=== PATIENT | male | born 1955 | race Caucasian/White ===

== ENCOUNTER → 2017-05-27 | Outpatient (CLI) | payer OTHER ==
[2017-05-27 17:48] LABS: BASO % 0.6 %; BASO ABS # 0.04 K/uL (0-0.2); COMPLETE YES; EOS % 3.3 %; HEMATOCRIT 45.4 % (42-52); IG% 0.1 %; LYMPH % 21.5 %; LYMPH ABS # 1.48 K/uL (1.2-3.4); MEAN CELL VOLUME 87.3 fL (80-100); MEAN CORPUSCULAR HGB CONC 34.4 g/dl (32-36); MEAN PLATELET VOLUME 9.5 fL (7.4-10.4); MONO % 5.2 %; NEUT % 69.3 %; PLATELET COUNT 238 K/uL (130-400); WHITE BLOOD COUNT 6.87 K/uL (4.8-10.8)
[2017-05-27 18:50] LABS: ALB/GLOB RATIO 1.2 (0.9-2); ALKALINE PHOSPHATASE 81 U/L (45-117); ALT/SGPT 33 U/L (12-78); AST/SGOT 15 U/L (15-37); BLOOD UREA NITROGEN 11 mg/dl (7-18); CALCIUM 8.7 mg/dl (8.5-10.1); CARBON DIOXIDE 26 mmol/L (21-32); CHLORIDE 104 mmol/L (98-107); CHOLESTEROL 195 mg/dl (0-200); CHOLESTEROL/HDL RATIO 5.4; CREATININE 1.14 mg/dl (0.60-1.40); GLUCOSE 102 mg/dl (70-99); HDL CHOLESTEROL 36 mg/dl; POTASSIUM 4.2 mmol/L (3.5-5.1); SODIUM 136 mmol/L (136-145)
[2017-05-27 19:03] LABS: LDL CHOLESTEROL CALCULATED 138 mg/dl; TRIGLYCERIDES 107 mg/dl (0-150); VERY LOW DENSITY LIPOPROT CALC 21 mg/dl
== END | disposition home or self-care (01) ==
LOC: C.LABPVFM 13:16
PROVIDERS: ATTEND Family Medicine
DX: R03.0 Elevated blood-pressure reading, without diagnosis of hypertension (principal)

== ENCOUNTER 2019-02-18 06:36 | Inpatient (IN) ==
--- NOTE | 2019-02-11 08:41 | PAT Medication Instructions ---
Medication Instructions Date of Service February 11, 2019 Home Medications hydrochlorothiazide 25 mg tablet 25 mg PO QAM atorvastatin 40 mg PO QPM DO NOT take the morning of surgery hydrochlorothiazide 25 mg tablet 25 mg PO QAM Take evening before surgery atorvastatin 40 mg PO QPM Other Notes If you have any questions please call us at [phone] or [phone] or [phone] or [phone]
--- NOTE | 2019-02-11 10:50 | Anesthesiology Consultation ---
Date of Service February 11, 2019 Assessment & Plan (1) Encounter for pre-operative examination: - PCP: 02/11/19: "pt is medically optimized for the procedure ("cleared")." Chart Review Chart Review: Acceptable Risk for Surgery (pending preop EKG) and Patient seen in Pre Admission Testing Teaching & Discussion Pre-Anesthesia Teaching/Discussion Notes: Instructed NPO after midnight before surgery,except medications with 15 cc of water. Medication instructions provided according to the PAT guidelines. History Surgery Operation Date: 02/18/19 08:15 Proposed Procedures p Robotic Laparoscopic Prostatectomy, Possible Lymph Node Dissection, - Rasheed Franco MD s Suprapubic Tube Placement - Rasheed Franco MD Height/Weight Height: 5 ft 10 in Weight: 72.6 kg Allergies Allergy/AdvReac Type Severity Reaction Status Date / Time No Known Allergies Allergy Unverified 02/11/19 13:24 Medications Home Medications Medication Instructions Recorded Confirmed Last Taken hydrochlorothiazide 25 mg tablet 25 mg PO QAM #90 tab 02/03/19 02/11/19 Unknown atorvastatin 40 mg PO QPM 02/04/19 02/11/19 Unknown Past Medical History Medical History HTN (hypertension) Hyperlipidemia Prostate cancer Exercise / Class Metabolic Activity II 4-5 Yardwork/Stairs/Walk up hill Past Family History Family History Brother No problems noted. Mother Family history of diabetes mellitus Father Family history of diabetes mellitus Family/Other Family history of diabetes mellitus Past Surgical History Surgical History H/O prostate biopsy History of tooth extraction Past Anesthesia History No Hx of Anesthesia Complications and No Family Hx of Anesthesia Complications History of PONV No Hx of PONV and No Hx of Motion Sickness Social History tobacco type: cigars Do You Dip or Chew Tobacco: Yes (1 can/3-5 days- advised NPO AM DOS) Smoking End Date: Quit cigarettes 15 years ago; rare cigar use Hx Alcohol Use: Yes Alcohol type: beer and hard liquor alcohol intake frequency: a few times a month Hx Substance Use: No substance use type: does not use Review of Systems Patient denies chest pain, shortness of breath, dyspnea on exertion, reflux, cough, wheezing, palpitations. Physical Exam Vital Signs VITALS BP 154/97 (elevated in medical settings per patient, monitors closely at home 120-130's/70-80's) P 62 TEMP 97.9 SP02 95%RA RESP 20 PHYSICAL Full neck and c-spine range of motion. Full TMJ range of motion. TMD 3.5 finger breaths Mallampati Score 2 Dentition: missing molars Lungs: clear throughout to auscultation Cardiac: regular rate and rhythm, no murmurs noted Spine: normal Carotid arteries: negative bruit Extremities: no edema Trimmed spears Testing Laboratory Results 02/11/19 11:30 02/11/19 11:50 Urine Color Yellow 02/11/19 Unknown Urine Appearance Clear (Clear) 02/11/19 Unknown Urine pH 7.0 (4.5-7.5) 02/11/19 Unknown Ur Specific Mc[place] 1.011 (1.000-1.030) 02/11/19 Unknown Urine Protein Negative (Negative) 02/11/19 Unknown Urine Glucose (UA) Negative (Negative) 02/11/19 Unknown Urine Ketones Negative (Negative) 02/11/19 Unknown Urine Nitrite Negative (Negative) 02/11/19 Unknown Ur Leukocyte Esterase Negative (Negative) 02/11/19 Unknown Blood Type A Negative 02/11/19 11:30 Antibody Screen NEGATIVE 02/11/19 11:30 Chest X-Ray Date: 02/11/19 Findings: + NAD
[2019-02-11 12:12] LABS: Basophils # (auto) 0.03 K/uL (0-0.2); Basophils % (auto) 0.5 %; Eosinophils # (auto) 0.25 K/uL (0-0.5); Eosinophils % (auto) 3.8 %; Hematocrit (blood only) 48.5 % (42-52); Hemoglobin 17.6 g/dL (14.0-18.0); Immature Granulocytes # (auto) 0.02 K/uL (0.00-0.02); Immature Granulocytes % (auto) 0.3 %; Lymphocytes # (auto) 1.84 K/uL (1.2-3.4); Mean Corpuscular Hemoglobin 30.9 pg (25-34); Mean Corpuscular Hgb Conc 36.3 g/dL (32-36); Mean Corpuscular Volume 85.2 fL (80-100); Mean Platelet Volume 10.2 fL (7.4-10.4); Monocytes # (auto) 0.55 K/uL (0.11-0.59); Monocytes % (auto) 8.4 %; Neutrophils # (auto) 3.88 K/uL (1.4-6.5); Platelet Count 198 K/uL (130-400); RDW Coefficient of Variation 13.7 % (11.5-14.5); RDW Standard Deviation 42.4 fL (36.4-46.3); Red Blood Count 5.69 M/uL (4.7-6.1); White Blood Count 6.57 K/uL (4.8-10.8)
--- NOTE | 2019-02-11 12:20 | XRay Report ---
XR chest Pre-admission PA/Lat CLINICAL HISTORY: pat preoperative evaluation COMPARISON STUDY: No previous studies for comparison. FINDINGS: The bones soft tissues and hemidiaphragms are normal. The cardiomediastinal silhouette is n ormal. The lungs are clear. The pulmonary vasculature is normal. IMPRESSION: Negative chest. The above report was generated using voice recognition software. It may contain grammatical, syntax or spelling errors. Electronically signed by: Steven Dowling M.D. 02/11/2019 12:19 PM
[2019-02-11 12:32] LABS: Appearance Urine Clear (Clear); Bilirubin Urine Negative (Negative); Blood Urine Negative (Negative); Color Urine Yellow; Glucose Urine UA Negative (Negative); Ketones Urine Negative (Negative); Leukocyte Esterase Urine Negative (Negative); Nitrite Urine Negative (Negative); Protein Urine Negative (Negative); Specific Gravity Urine 1.011 (1.000-1.030); Urobilinogen Urine Negative (Negative)
[2019-02-11 13:52] LABS: BUN Creatinine Ratio 19.3 (10-20); Calcium 9.5 mg/dl (8.5-10.1); Creatinine Clr Calc Pharmacy 75.1 ml/min; Est GFR (African American) 89.6; Est GFR (Non-African American) 77.3; Potassium 3.5 mmol/L (3.5-5.1)
[~2019-02-18 06:36] MED LIST: ACETAMINOPHEN 1,000 MG/100 ML VIAL IV SCH; CEFAZOLIN 2000MG 2,000 MG/15 ML SYR IV SCH; HEPARIN SOD 5,000 UNIT/0.5 ML VIAL SQ SCH; LR 15ML/HR IV SCH
[2019-02-18] MEDS ORDERED: MIDAZOLAM HCL 1 MG/ML 2ML VIAL ONE (08:01)
[2019-02-18] MEDS ORDERED: fentaNYL citrate 100 MCG/2 ML VIAL ONE (08:02)
--- NOTE | 2019-02-18 08:14 | History & Physical Bridge Note ---
Date of Service February 18, 2019 History & Physical Bridge Note I have examined the patient, reviewed the History & Physical and in the interval since the performance of the History & Physical I have noted the following changes of clinical significance: no changes noted
[2019-02-18] MEDS ORDERED: BUPIVACAINE 0.5 % 5 MG/1 ML MPF 30ML VIAL ONE (08:24)
[2019-02-18] MEDS ORDERED: ATROPINE SULFATE 0.1 MG/ML 10ML SYR IV PRN (08:51)
[2019-02-18] MEDS ORDERED: ONDANSETRON INJ 2 MG/ML 2 ML VIAL IV PRN ×2 (08:51→12:37)
[2019-02-18] MEDS ORDERED: HYDROmorphone INJ 1 MG/ML SYRINGE IV PRN (08:51)
[2019-02-18] MEDS ORDERED: fentaNYL citrate 100 MCG/2 ML VIAL IV PRN (08:51)
[2019-02-18] MEDS ORDERED: ePHEDrine sulfate 50 MG/ML AMP IV PRN (08:51)
[2019-02-18] MEDS ORDERED: HYDROmorphone INJ 2 MG/ML SYR/VIAL ONE (08:58)
[2019-02-18] MEDS ORDERED: DEXAMETHASONE SOD INJ 4 MG/ML VIAL ONE (10:45)
[2019-02-18] MEDS ORDERED: LIDOCAINE 2% 20 MG/ML 5 ML SYR IV ONE (10:45)
[2019-02-18] MEDS ORDERED: PROPOFOL IV EMULSION 10 MG/ML 20 ML VIAL IV ONE (10:45)
[2019-02-18] MEDS ORDERED: ROCURONIUM BROMIDE 10 MG/ML 5 ML VIAL ONE (10:45)
[2019-02-18] MEDS ORDERED: ATROPINE SO4 1 MG/ML 1ML VIAL ONE (10:46)
[2019-02-18] MEDS ORDERED: NEOSTIGMINE METHYLSULFATE 5 MG/5 ML SYR ONE (10:46)
[2019-02-18] MEDS ORDERED: GLYCOPYRROLATE 0.2 MG/ML VIAL ONE ×2 (10:46)
[2019-02-18] MEDS ORDERED: ONDANSETRON INJ 2 MG/ML 2 ML VIAL ONE ×2 (10:46→10:58)
--- NOTE | 2019-02-18 11:14 | Operative Report ---
Post Operative Report Pre & Post Diagnosis Operation Date: 02/18/19 08:15 Pre-Op Diagnosis: Prostatic Cancer Post-Op Diagnosis: Prostatic Cancer Procedure Operation Date: 02/18/19 08:15 Actual Procedures p Robotic Laparoscopic Prostatectomy - Rasheed Franco MD s Suprapubic Tube Placement - Rasheed Franco MD Surgeon Rasheed Franco MD Central Office Worker Mike MURRAY Estimated Blood Loss 50 Findings Consistent with Post-Op Diagnosis Specimens Periprostatic fat, prostate + SVs Description of Procedure RALRP, SPT placement I attest to the content of the Intraoperative Record and any orders documented therein. Any exceptions are noted below.
[2019-02-18 11:51] LABS: Basophils # (auto) 0.02 K/uL (0-0.2); Basophils % (auto) 0.1 %; Eosinophils # (auto) 0.14 K/uL (0-0.5); Hematocrit (blood only) 47.8 % (42-52); Immature Granulocytes # (auto) 0.03 K/uL (0.00-0.02); Immature Granulocytes % (auto) 0.2 %; Lymphocytes # (auto) 1.48 K/uL (1.2-3.4); Lymphocytes % (auto) 10.9 %; Mean Corpuscular Volume 87.1 fL (80-100); Mean Platelet Volume 10.1 fL (7.4-10.4); Monocytes # (auto) 0.36 K/uL (0.11-0.59); Monocytes % (auto) 2.6 %; Neutrophils % (auto) 85.2 %; Platelet Count 177 K/uL (130-400); RDW Coefficient of Variation 13.3 % (11.5-14.5); RDW Standard Deviation 42.4 fL (36.4-46.3); Red Blood Count 5.49 M/uL (4.7-6.1); White Blood Count 13.63 K/uL (4.8-10.8)
[2019-02-18 12:10] LABS: Mean Corpuscular Hgb Conc 35.6 g/dL (32-36)
--- NOTE | 2019-02-18 12:22 | Anesthesiology Progress Note ---
Date of Service February 18, 2019 Anesthesia Post Procedure Vital Signs Vital Signs: Temp Pulse Pulse Resp BP Pulse Ox 02/18/19 12:05 36.0 C L 51 L 13 153/93 H 97 02/18/19 11:55 48 L 12 138/82 97 02/18/19 11:45 59 L 13 132/81 99 02/18/19 11:36 59 L 13 132/81 99 02/18/19 11:26 36.3 C L 52 L 24 147/96 H 99 02/18/19 07:36 36.6 C 69 18 160/101 H 99 Pain Intensity Abdomen: Pain Intensity: 0 Transfer of Care Handoff Completed per policy Notes Mental Status: alert / awake / arousable and participated in evaluation Patient Amnestic to Procedure: Yes Nausea / Vomiting: adequately controlled Pain: adequately controlled Airway Patency, RR, SpO2: stable & adequate BP & HR: stable & adequate Hydration State: stable & adequate Anesthetic Complications: no major complications apparent and Pt Satisfied with anesthetic care
--- NOTE | 2019-02-18 12:23 | Operative Report ---
DATE OF OPERATION: 02/18/2019 PREOPERATIVE DIAGNOSIS: Clinical T1c, Alderpoint 3+4 adenocarcinoma of the prostate with a preoperative PSA of 4.4. POSTOPERATIVE DIAGNOSIS: Clinical T1c, Alderpoint 3+4 adenocarcinoma of the prostate with a preoperative PSA of 4.4. PROCEDURE: Robot-assisted laparoscopic radical retropubic prostatectomy with bilateral nerve sparing, suprapubic tube placement. SURGEON: Rasheed Franco MD DIRECTOR OF CURRICULUM AND INSTRUCTION: TREVOR Hinojosa. Assistants present throughout the case for port placement, tissue retraction, camera manipulation during laparoscopic portion of the case, suction, needle passage, assistance with closure and general patient safety. INTRAVENOUS FLUIDS: 1 liter. ESTIMATED BLOOD LOSS: 50 mL. ANESTHESIA: General anesthesia with endotracheal intubation plus local at port sites. COMPLICATIONS: None. SPECIMENS SENT TO PATHOLOGY: Periprostatic fat, prostate plus seminal vesicles. DRAINS LEFT IN PLACE: Include an 18-[place] silicone Patel catheter per urethra with 10 mL of sterile water in the balloon, 16-[place] suprapubic tube with 10 mL of sterile water in the balloon and #10 JNOH drain in left lower quadrant. FINDINGS: Watertight anastomosis, excellent plane of dissection without discernible intraabdominal anatomic abnormalities. BRIEF HISTORY: Mr. Deal is a pleasant 63-year-old male who I have seen for an elevated age adjusted PSA value who underwent a prostate biopsy for evaluation. This demonstrated majority Alderpoint 3 disease in 5 cores with a 5% component of Reed 4 and a single core. After discussion of risks and benefits of various forms of intervention, he has decided upon robotic prostatectomy to manage his disease. Seeing his low PSA and a low Reed 4 volume, nerve sparing dissection is planned and the lymph node dissection is not planned. Please see H and P for further details. Intravenous Ancef was provided for antibiotic coverage and SCDs used for DVT prophylaxis. Intravenous Tylenol was also provided for additional perioperative analgesia. DESCRIPTION OF PROCEDURE: The patient was properly identified and brought into the operative suite after identification of appropriate consent on the chart. General anesthesia with endotracheal intubation was initiated. The patient was prepped and draped in standard fashion for this procedure. interactive multimedia designer-out procedure was followed. Supraumbilical incision was made in a lateral direction and abdomen was entered under direct visualization using a 0 degree laparoscope and visual obturator. Abdomen was insufflated to 15 mmHg and a transient vagal response, required desufflation of the abdomen shortly. Abdomen was then reinsufflated to 12 mmHg with resolution of the prior difficulties and it was kept at this pressure for the remainder of the case. Ports were placed for 4th arm robotic template including 2 left-sided 7 mm ports, 1 right-sided 7 mm robotic port and a 12 and 5 mm facilities assistant port. The patient was placed in Trendelenburg and robot was brought in and docked. A 0 degree lens was used to drop the bladder down to the level of the pubic bone. A paucity of intra-abdominal fat was appreciated. Prostate was defatted and this tissue was sent for pathologic analysis as periprostatic fat. Endopelvic fascia was sharply entered on both sides and dissection was carried down to the level of the apex of the prostate. Dorsal venous complex was skeletonized and controlled using 0 Vicryl suture on a CT1 needle in a [id number] fashion. Well-defined neurovascular bundles were appreciated on both sides of the prostate and nerve sparing dissection was initiated at this time. A 30-degree down lens was then used to place the bladder on traction and the fourth arm using a ProGrasp. Bladder neck was skeletonized down to the level of the Patel catheter with a well-defined detrusor musculature. This was divided at its insertion into the prostate and Patel was then used for anterior traction on the prostate. Posterior bladder neck was divided and dropped in the midline until the vas deferens were encountered. These were circumscribed and divided and seminal vesicles were dissected free from the confines of the prostatic bed without difficulties or violation. Excellent anatomy was appreciated throughout the case. Rectum was dropped in the midline down to the level of the apex of the prostate. Prostatic pedicles were skeletonized and a single lateral Weck clip was used to control the inferior vesicle attachments of the prostate and the prostatic pedicles. A complete nerve sparing dissection was carried out on both sides up to the level of the apex of the prostate. Attention was then turned to the dorsal venous bundle which was divided using hot scissors. Urethra was skeletonized and divided at its insertion into the prostate with excellent urethral length. Remaining rectourethralis fibers were divided and prostate was delivered from the pelvis where it was placed. I went into the EndoCatch bag within the abdominal cavity. This was left for retrieval at the end of the case. Attention was turned to the pelvis where excellent hemostasis was appreciated. No tissue sealant was felt to be necessary. Rectum was insufflated under saline irrigation and noted to be free of any injury. Double armed Vicryl suture was used to anastomose a continent bladder neck to an excellent urethral stump. A Patel catheter easily entered the bladder over the course of this closure and after it was complete, it was tested with greater than 120 mL of sterile irrigant and noted to be watertight. A balloon to the Patel catheter was deflated and this was brought down to the urethra channel. A suprapubic tube was made was brought in via the small separate suprapubic incision and directly visualized entering the bladder using the robot. A 10 mL of sterile water were placed within a 16-[place] catheter via the trocar. The urethral catheter was returned to the bladder and balloon was reinflated. Catheters were irrigated with isovolumic return from one to the other. No evidence of posterior bladder injury was appreciated on direct visualization. Fourth arm was removed and #10 JONH drain was brought in via the fourth arm port. Robotic instruments were removed and robot was dedocked. Strings to the EndoCatch bag was brought out through the supraumbilical incision prior to port removal. This was then enlarged sufficiently to allow for easy removal of the specimen bag. Supraumbilical incision was closed using a 0 Vicryl suture on a UR-5 needle. A 2-0 silk was used to secure the JONH drain and suprapubic tube in place. Monocryl was used at the level of the skin followed by Dermabond for skin closure. Excess carbon dioxide gas had been removed from the abdomen prior to completion of closure. Anesthesia was reversed. The patient was transferred to recovery room in stable condition. FOLLOWUP CARE: The patient will be admitted to the floor for standard postoperative management. I attest to the content of the Intraoperative Record and any orders documented therein. Any exceptions are noted below. ACD
[2019-02-18 12:25] LABS: BUN Creatinine Ratio 17.8 (10-20); Calcium 8.6 mg/dl (8.5-10.1); Creatinine Clr Calc Pharmacy 56.2 ml/min; Est GFR (African American) 64.4; Est GFR (Non-African American) 55.6
[2019-02-18] MEDS ORDERED: MoRPHine SULFATE 4 MG/ML 1 ML CARP\\VIAL IV PRN (12:37)
[2019-02-18] MEDS ORDERED: ACETAMINOPHEN 1,000 MG/100 ML VIAL IV PRN (12:37)
[2019-02-18] MEDS ORDERED: OXYCODONE HCL IR 5 MG TAB (IMMEDIATE RELEASE) PO PRN ×2 (12:37)
[2019-02-18] MEDS: LACTATED RINGER'S 1,000 ML IV SCH ×2 (14:02→22:20)
[2019-02-18] MEDS: CEFAZOLIN 2000MG 2,000 MG/15 ML SYR IV SCH ×2 (15:53→23:34)
[2019-02-18] MEDS: HEPARIN SOD 5,000 UNIT/0.5 ML VIAL SQ SCH (20:28)
[2019-02-18] MEDS: DOCUSATE SODIUM 100 MG CAP PO SCH (20:28)
[2019-02-18] MEDS: FAMOTIDINE 20 MG in SYRINGE 3 ML IV SCH (20:28)
[2019-02-18] MEDS ORDERED: ATORVASTATIN 40 MG TAB PO SCH (21:00)
--- NOTE | 2019-02-19 07:31 | Urology Progress Note ---
Date of Service February 19, 2019 Assessment & Plan (1) Prostate cancer: A/P 63 yo male POD#1 s/p RALRP. Doing well. Wishes to keep SPT - will remove urethral yu, leave SPT in place for postop drainage. Advance diet and activity, DC IVF. Anticipate DC JONH and DC home later today. DC instructions and limitations reviewed with patient. Subjective 63 yo male POD#1 s/p RALRP, SPT. Doing well, anxious to have diet and go home. Pain well controlled, OOB last night. AM labs pending, PM postop labs wnl. No c/o, in good spirits. Review of Systems Constitutional: no fever and no chills Eyes: no diplopia Ear, Nose, Mouth, Throat: no ear trauma Respiratory: no hemoptysis Cardiovascular: no chest pain Gastrointestinal: + abdominal pain Integumentary: no acne and no boil Neurologic: no paralysis Psychiatric: no hopelessness Allergy / Immunological: no tongue swelling Physical Exam Constitutional: well developed and well nourished; no acute distress Eyes: eyes not dysmorphic ENMT: Ears: no external ear abnormality Neck: trachea midline; no anterior neck swelling Respiratory: no respiratory distress and does not use accessory muscles Cardiovascular: Vessels: radial pulses present Gastrointestinal (Abdomen): Inspection/Auscultation: abdomen not distended Percussion/Palpation: abdomen soft; abdomen nontender inc and drain sites, SPT site c/d/i with dressing. Musculoskeletal: Head/Neck/Chest: normocephalic and neck supple Skin: normal turgor Neurologic: awake; not obtunded Psychiatric: Orientation: oriented x 3 Lymphatic: no lymphadenopathy Results & Data Vital Signs (Past 12 Hours) Vital Signs Temp Pulse Resp BP BP Pulse Ox 02/19/19 03:15 36.9 C 61 14 128/58 L 96 02/18/19 22:58 37.0 C 64 14 135/75 98 02/18/19 20:36 168/87 H 02/18/19 19:44 36.9 C 70 18 193/76 H 97 Laboratory Results Laboratory Results - last 48 hr 02/18/19 02/18/19 11:29 11:29 WBC 13.63 H RBC 5.49 Hgb 17.0 Hct 47.8 MCV 87.1 MCH 31.0 MCHC 35.6 RDW Std Deviation 42.4 RDW Coeff of Emeterio 13.3 Plt Count 177 MPV 10.1 Immature Gran % (Auto) 0.2 Neut % (Auto) 85.2 Lymph % (Auto) 10.9 [place] % (Auto) 2.6 Eos % (Auto) 1.0 Baso % (Auto) 0.1 Immature Gran # (Auto) 0.03 H Neut # (Auto) 11.60 H Lymph # (Auto) 1.48 [place] # (Auto) 0.36 Eos # (Auto) 0.14 Baso # (Auto) 0.02 Sodium 139 Potassium 4.0 Chloride 102 Carbon Dioxide 33 H Anion Gap 4.0 BUN 24 H Creatinine 1.34 Est Cr Clr Drug Dosing 56.2 Est GFR ( Amer) 64.4 Est GFR (Non-Af Amer) 55.6 BUN/Creatinine Ratio 17.8 Glucose 140 H Calcium 8.6 Specimen Hemolysis PG Care Time/CCT Total # of Minutes Spent Total Time Spent with Patient: Total time spent is greater than 50% in coordination of care (as documented) at patient's floor/unit and/or counseling patient:
[2019-02-19] MEDS: DOCUSATE SODIUM 100 MG CAP PO SCH (08:07)
[2019-02-19] MEDS: HEPARIN SOD 5,000 UNIT/0.5 ML VIAL SQ SCH (08:07)
[2019-02-19 08:14] LABS: Basophils # (auto) 0.01 K/uL (0-0.2); Basophils % (auto) 0.1 %; Eosinophils # (auto) 0.06 K/uL (0-0.5); Eosinophils % (auto) 0.5 %; Hematocrit (blood only) 42.4 % (42-52); Hemoglobin 14.7 g/dL (14.0-18.0); Immature Granulocytes # (auto) 0.02 K/uL (0.00-0.02); Immature Granulocytes % (auto) 0.2 %; Lymphocytes # (auto) 1.85 K/uL (1.2-3.4); Mean Corpuscular Hemoglobin 29.9 pg (25-34); Mean Corpuscular Hgb Conc 34.7 g/dL (32-36); Mean Corpuscular Volume 86.2 fL (80-100); Mean Platelet Volume 10.1 fL (7.4-10.4); Monocytes # (auto) 1.19 K/uL (0.11-0.59); Monocytes % (auto) 10.3 %; Neutrophils # (auto) 8.43 K/uL (1.4-6.5); Neutrophils % (auto) 72.9 %; Platelet Count 175 K/uL (130-400); RDW Coefficient of Variation 13.4 % (11.5-14.5); RDW Standard Deviation 42.4 fL (36.4-46.3); Red Blood Count 4.92 M/uL (4.7-6.1); White Blood Count 11.56 K/uL (4.8-10.8)
[2019-02-19] MEDS: CEFAZOLIN 2000MG 2,000 MG/15 ML SYR IV SCH (08:15)
[2019-02-19] MEDS: FAMOTIDINE 20 MG in SYRINGE 3 ML IV SCH (08:16)
--- NOTE | 2019-02-19 08:18 | Anesthesiology Progress Note ---
Date of Service February 19, 2019 Anesthesia Post Procedure Vital Signs Vital Signs: Temp Pulse Pulse Resp BP BP Pulse Ox 02/19/19 07:54 36.6 C 55 L 14 140/86 97 02/19/19 03:15 36.9 C 61 14 128/58 L 96 02/18/19 22:58 37.0 C 64 14 135/75 98 02/18/19 20:36 168/87 H 02/18/19 19:44 36.9 C 70 18 193/76 H 97 02/18/19 17:24 37.1 C 67 18 155/89 H 98 02/18/19 16:09 36.7 C 68 18 163/96 H 96 02/18/19 14:58 36.5 C 75 18 162/92 H 97 02/18/19 14:01 36.5 C 83 18 147/91 H 97 02/18/19 13:00 36.4 C L 55 L 18 143/87 H 97 02/18/19 12:30 36.4 C L 56 L 18 150/89 H 96 02/18/19 12:15 54 L 16 144/93 H 100 02/18/19 12:05 36.3 C L 51 L 13 153/93 H 97 02/18/19 11:55 48 L 12 138/82 97 02/18/19 11:45 59 L 13 132/81 99 02/18/19 11:36 59 L 13 132/81 99 02/18/19 11:26 36.3 C L 52 L 24 147/96 H 99 Pain Intensity Abdomen: Pain Intensity: 1 Notes Mental Status: alert / awake / arousable Patient Amnestic to Procedure: Yes Nausea / Vomiting: adequately controlled Pain: adequately controlled Airway Patency, RR, SpO2: stable & adequate BP & HR: stable & adequate Hydration State: stable & adequate Anesthetic Complications: no major complications apparent and Pt Satisfied with anesthetic care
[2019-02-19 08:40] LABS: Calcium 8.3 mg/dl (8.5-10.1); Est GFR (African American) 82.7; Est GFR (Non-African American) 71.4; Potassium 3.7 mmol/L (3.5-5.1)
[2019-02-19] MEDS ORDERED: hydroCHLOROthiazide 25 MG TAB PO SCH (09:00)
[2019-02-19] MEDS ORDERED: FAMOTIDINE 20 MG TAB PO SCH (21:00)
--- NOTE | 2019-03-09 15:58 | Discharge Summary ---
Date of Service March 09, 2019 Admission HPI Per Admitting Provider Patient with prostate cancer for prostatectomy. See H&P for further details. Admission Exam Per Admitting Provider NAD CTAB S1S2 Soft, NT, ND Nonfocal exam Principal Diagnosis prostate cancer Discharge Exam Constitutional well developed and well nourished; no acute distress Eyes eyes not dysmorphic ENMT Ears: no external ear abnormality Neck trachea midline; no anterior neck swelling Respiratory no respiratory distress and does not use accessory muscles Cardiovascular Vessels: radial pulses present Gastrointestinal (Abdomen) Inspection/Auscultation: abdomen not distended Percussion/Palpation: abdomen soft; abdomen nontender Musculoskeletal Head/Neck/Chest: normocephalic and neck supple Skin normal turgor Neurologic awake; not obtunded Psychiatric Orientation: oriented x 3 Lymphatic no lymphadenopathy Discharge Data Allergies Allergy/AdvReac Type Severity Reaction Status Date / Time No Known Allergies Allergy Unverified 03/02/19 09:30 Procedures Performed Operation Date: 02/18/19 08:15 Actual Procedures p Robotic Laparoscopic Prostatectomy - Rasheed Franco MD s Suprapubic Tube Placement - Rasheed Franco MD Hospital Course (1) Prostate cancer: A/P 63 yo male POD#1 s/p RALRP. Doing well. Wishes to keep SPT - will remove urethral yu, leave SPT in place for postop drainage. Advance diet and activity, DC IVF. Anticipate DC JONH and DC home later today. DC instructions and limitations reviewed with patient. Total Time Total Time Spent Total Time Spent (In Minutes): 10 Discharge Plan Discharge Items Patient Disposition: Home - Self-Care Reason For Visit: Prostatic Cancer Activity: Per Instructions section Lifting: No more than 10 pounds Bathing Comment: Shower tomorrow, do not scrub/pick surgical glue, no soaking in tub Sexual Activity: Wait until after follow-up appointment Exercise/Sports: None Exercise Comment: Walking and stairs in your home are okay. Non-emergency contact: Urologist Follow-up/Referrals: Mónica Wang MD [Primary Care Provider] - Addtl Fire Management Officer Provider Instructions: Please keep all appointments at the urology office as scheduled. Call office at [phone] with any questions or concerns. SP Tube: clean around insertion site gently twice daily with mild soap and water. Call office if it is not draining, painful, or catheter is tugged/displaced for any reason. Pain: take Tylenol as needed for mild pain. Take pain medication (Oxycodone) as needed for moderate/severe pain. Bowels: take stool softener (Colace) twice daily for 2 weeks, then as needed for constipation. Antibiotic: begin taking twice daily as prescribed one day prior to your catheter removal. Finish completely. Thanks for allowing us to participate in your care! Pending Studies at Discharge: Yes Studies:: Pathology Stand-Alone Forms: My [facility] Medications and DC Order Prescriptions: New docusate sodium [Colace] 100 mg capsule 100 mg PO BID PRN (Reason: constipation) Qty: 60 RF: 0 oxycodone 5 mg tablet 5 mg PO Q6H PRN (Reason: pain) Qty: 10 RF: 0 Continued hydrochlorothiazide 25 mg tablet 25 mg PO QAM Qty: 90 RF: 0 atorvastatin 40 mg tablet 40 mg PO QPM RF: 0 Discharge Orders: Discharge Order (Routine); Ordered 02/19/19 Ordered By: Olivia Perez Admission Data Admit Date/Time: 02/18/19 11:16 Attending Provider: Rasheed Franco I. Admit Provider: Rasheed Franco I. Primary Care Provider: Mónica Wang Other Interventions: Discharge Summary Assessment (RN) Last Done: 02/19/19 12:49 DC Date/Time DO NOT enter until pt leaves facility: 02/19/19 13:45
== END 2019-02-19 13:45 | disposition home or self-care (01) | DRG 708 ==
LOC: ASU 06:36 → 3N 11:16